=== PATIENT | male | born 1985 ===

== ENCOUNTER → 2018-12-11 | Outpatient (REF) | payer SELFPAY ==
[2018-12-11 14:03] LABS: SEMEN APPEARANCE OPAQUE (OPAQUE); SEMEN VISCOSITY LIQUID (LIQUID); SPERM CONCENTRATION 6.9 M/ml (>=15.0); WBC CONCENTRATION >1 M/ml (<=1 M/ml)
== END ==
LOC: M LAB REF 12:24
PROVIDERS: ATTEND Physician Assistant
DX: N46.9 Male infertility, unspecified (principal)